=== PATIENT | female | born 1990 | race Hispanic/Latino ===

== ENCOUNTER 2018-04-04 12:52 | Inpatient (IN) | payer OTHER ==
[2018-04-04] MEDS ORDERED: Amoxicillin-Clav 875-125 mg Tab PO STA (13:13)
--- NOTE | 2018-04-04 13:20 | ED PDOC ---
Arrival/HPI - General Chief Complaint: Dental Pain Time Seen by Provider: 04/04/18 13:13 Historian: Patient - History of Present Illness Narrative History of Present Illness (Text): 04/04/18 13:22 27 y/o female, no significant pmh, nkda, s/p lt. lower molar removal procedure performed by her dentist yesterday without conscious sedation c/o lt. sided facial swelling and pain on the throat started yesterday and today. Aching pain , on and off, associated with painful swallowing, no fever or chills, no night sweat, no numbness or tingling, no palpitation, no other medical or psychological complaints. Past Medical History - Provider Review Nursing Documentation Reviewed: Yes - Infectious Disease Hx of Infectious Diseases: None - Psychiatric Hx Substance Use: No - Anesthesia Hx Anesthesia: No Family/Social History - Physician Review Nursing Documentation Reviewed: Yes Family/Social History: Unknown Family HX Smoking Status: Never Smoked Hx Alcohol Use: No Hx Substance Use: No Allergies/Home Meds Allergies/Adverse Reactions: Allergies No Known Allergies Allergy (Verified 04/04/18 12:58) Home Medications: Home Meds Medication Instructions Recorded Confirmed No Known Home Med 04/04/18 04/04/18 Review of Systems - Review of Systems Constitutional: absent: Fatigue, Fevers Eyes: absent: Vision Changes ENT: Sore Throat, Other (Lt. lower dental pain and jaw swelling). absent: Hearing Changes Respiratory: absent: SOB, Cough Cardiovascular: absent: Chest Pain Gastrointestinal: absent: Abdominal Pain, Nausea, Vomiting Skin: absent: Rash, Pruritis Neurological: absent: Headache Psychiatric: absent: Anxiety, Depression, Suicidal Ideation Physical Exam Vital Signs Reviewed: Yes Vital Signs Temp Pulse Resp BP Pulse Ox 04/04/18 20:11 124/62 04/04/18 20:00 98.4 F 04/04/18 19:51 18 121/77 100 04/04/18 19:50 79 18 121/77 100 04/04/18 15:00 79 18 135/71 100 04/04/18 13:06 98.0 F 86 18 138/76 100 Temperature: Afebrile Blood Pressure: Normal Pulse: Regular Respiratory Rate: Normal Appearance: Positive for: Well-Appearing, Non-Toxic, Comfortable Pain Distress: Moderate Mental Status: Positive for: Alert and Oriented X 3 - Systems Exam Head: Present: Atraumatic, Normocephalic, Other (+lt. lower jaw swelling and lt. anterior cervical lymphenapathy) Pupils: Present: PERRL Extroacular Muscles: Present: EOMI Conjunctiva: Present: Normal Ears: Present: NORMAL TM, Normal Canal. No: Erythema Mouth: Present: Moist Mucous Membranes Pharnyx: Present: Soft Palate/Uvular Edema. No: ERYTHEMA, EXUDATE, TONSILS ENLARGED, Uvular Deviation, Muffled/Hoarse Voice, Strider Nose (External): Present: Atraumatic. No: Abrasion, Contusion, Laceration Nose (Internal): Present: Normal Inspection, No Active Bleeding. No: Rhinorrhea , Septal Hematoma, Epistaxis Neck: Present: Normal Range of Motion, Lymphadenopathy (lt. anterior cervical with crepitus sound noted on the left side of the facial/neck regions), Trachea Midline. No: Meningeal Signs, MIDLINE TENDERNESS, Paraspinal Tenderness Respiratory/Chest: Present: Clear to Auscultation, Good Air Exchange. No: Respiratory Distress, Accessory Muscle Use, Wheezes, Decreased Breath Sounds, Rales, Retracting, Rhonchi Cardiovascular: Present: Regular Rate and Rhythm, Normal S1, S2. No: Murmurs Abdomen: No: Tenderness, Distention, Peritoneal Signs Back: Present: Normal Inspection Upper Extremity: Present: Normal Inspection. No: Cyanosis, Edema Lower Extremity: Present: Normal Inspection. No: Edema Neurological: Present: GCS=15, CN II-XII Intact, Speech Normal, Motor Func Grossly Intact, Gait Normal, Memory Normal Skin: Present: Warm, Dry, Normal Color. No: Rashes Psychiatric: Present: Alert, Oriented x 3, Normal Insight, Normal Concentration Medical Decision Making ED Course and Treatment: 04/04/18 13:25 -labs/blood culture -CT facial and neck soft tissue -IVF/toradol/ativan (pt. feels anxious) -Observe and reassess 04/04/18 14:42 -CT reviewed by me and show there is free gas, will need CT chest to r/o source of the free air. CT Chest added. Dr. Marroquin awared of the care and aware of the case/treatment. 04/04/18 15:20 -Urine hcg is negative -Labs show no acute findings -VBG Lactic acid: 0.8 which is within normal limit. -CT facial show Pneumomediastinum with air dissecting into both sides of the neck -CT cervical soft tissue show Pneumomediastinum with large amount of air dissecting into both sides of the neck -CT chest: There is a small amount of mediastinal air surrounding proximal esophagus. There is a large amount of subcutaneous emphysema in the neck and supraclavicular fossa. No evidence of pneumothorax -IV unasyn ordered and will need to be admitted for further examination including scope or possible contrast evaluation po? -Pt.'s pmd doesn't come to [facility], request Dr. Mckeon for admission. -GI Dr. Toledo and ENT Paged, Dr. Mckeon paged. NPO 04/04/18 16:19 -I spoke to Dr. Mckeon, discussed about the labs/case/radiology result, request Dr. Toledo and ENT oncall to be on the consult, ENT and GI Paged, pending call back. 04/04/18 16:29 -I spoke to Dr. Toledo, discussed about the case/labs/radiology result, will consult on the case but suggest ENT and General surgeon consult as well. -vice president media relations/Dr. Quinones paged. 04/04/18 17:07 -I spoke to Dr. Quinones, discussed about the case and CT findings, he suggest ENT for the consult on this case 04/04/18 17:30 -I spoke to Dr. Orozco which he is covering Dr. Cruz, discussed about the case and would see the patient in the hospital with no further intervention indicated at this time, he would reviewed the CT himself as well and see the patient after his office hour, agreed on the IV unasyn and keeping the patient in the [facility]. 04/04/18 17:35 -Dr. Irasema Blount (ICU slot machine key person), discussed about the case/labs/radiology results and spoke to Dr. Marroquin as well, will come to evaluate the patient. 04/04/18 17:54 -I discussed with the medical care evaluation specialist from ICU Dr. Dominic Ely, expressed my concerning about higher level of care to ensure airway observation or any worsening signs or symptoms in the next 24 hours plus call ENT Dr. Orozco to evaluate the patient. 04/04/18 18:12 -Dr. Villalpando came to evaluate the patient, will take the patient to the ICU for close monitoring tonight. 04/04/18 18:23 -Dr. Orozco called back, spoke to Dr. Marroquin and awared that the patient would go to the ICU. Dr. Orozco may proceed with gastrographin swallow evaluation which I would defer to Dr. Orozco for further evaluation and see the patient first. 04/04/18 18:45 -Dr. Toledo came to evaluate the patient on the bedside. -Dr. Mckeon on the bedside now evaluating the patient as well. 04/04/18 19:43 -EKG: NSR @ 78 BPM, no ST elevation or depression, no T wave inversion. -Case seen and examined/discussed with Dr. Marroquin about this case. - Critical Care Critical Care Minutes: 45 minutes Narrative Critical Care (Text): 04/04/18 17:43 Possible esophogus rupture?, GI/ENT/ICU/General sugeon consult. - Lab Interpretations Lab Results: 04/04/18 13:46 04/04/18 13:46 Lab Results 04/04/18 15:35: Blood Type O POSITIVE, Antibody Screen Negative, BBK History Checked No verified bt 04/04/18 15:11: pO2 49, VBG pH 7.35, VBG pCO2 48.0, VBG HCO3 26.5, VBG Total CO2 28.0, VBG O2 Sat (Calc) 89.3 H, VBG Base Excess 0.3, VBG Potassium 4.0, Glucose 80, Lactate 0.8, FiO2 21.0, Sodium 135.0, Chloride 103.0, Venous Blood Potassium 4.0 04/04/18 13:46: WBC 8.2, RBC 4.30, Hgb 12.9, Hct 38.4, MCV 89.3, MCH 30.0, MCHC 33.6, RDW 12.9, Plt Count 191, MPV 12.3 H, Gran % 68.5 H, Lymph % (Auto) 25.7, Colbert % (Auto) 5.0, Eos % (Auto) 0.6 L, Baso % (Auto) 0.2, Gran # 5.63, Lymph # ( Auto) 2.1, Colbert # (Auto) 0.4, Eos # (Auto) 0.1, Baso # (Auto) 0.02 04/04/18 13:46: Sodium 144, Potassium 4.2, Chloride 106, Carbon Dioxide 24, Anion Gap 17, BUN 11, Creatinine 0.8, Est GFR ( Amer) > 60, Est GFR (Non- Af Amer) > 60, Random Glucose 90, Calcium 9.4, Magnesium 2.0, Total Bilirubin 0.5, AST 25, ALT 24, Alkaline Phosphatase 40, Total Protein 7.6, Albumin 4.7, Globulin 2.8, Albumin/Globulin Ratio 1.7, Lipase 111 04/04/18 13:30: PT 11.1, INR 0.97, APTT 27.5 I have reviewed the lab results: Yes - RAD Interpretation Radiology Orders: 04/04/18 13:21 NECK SOFT TISSUE W/CONTRAST [CT] Stat 04/04/18 13:22 MAXILLOFACIAL W/CONTRAST [CT] Stat 04/04/18 14:36 CHEST W/O CONTRAST [CT] Stat CT Facial:. PROCEDURE: CT MAXILLOFACIAL BONES WITH CONTRAST HISTORY: s/p lt. lower molar procedure, creptius sounds COMPARISON: None. TECHNIQUE: Contiguous axial CT images of the maxillofacial bones were obtained following administration of IV contrast. Coronal and sagittal reformats were generated. Intravenous contrast Dose: 150 cc of Omni 350 Radiation dose: Total exam DLP = 692 mGy-cm. This CT exam was performed using one or more of the following dose reduction techniques: Automated exposure control, adjustment of the mA and/or kV according to patient size, and/or use of iterative reconstruction technique. FINDINGS: NASAL BONES: Unremarkable. ORBITS: Unremarkable. PARANASAL SINUSES/ MASTOIDS: Clear. MAXILLA: Unremarkable. MANDIBLE/ TEMPOROMANDIBULAR JOINTS: Unremarkable. SKULL BASE: Unremarkable. TEMPORAL BONES: Middle ears and mastoid grossly unremarkable. OTHER FINDINGS: There is a large amount of air in the soft tissues of the neck consistent with pneumomediastinum. The findings are seen on both sides of the neck. The findings were discussed with the ER staff at 2:40 p.m. IMPRESSION: Pneumomediastinum with air dissecting into both sides of the neck CT Neck soft tissue: THERE IS PNEUMOMEDIASTINUM WITH A LARGE AMOUNT OF AIR DISSECTING IN TO BOTH SIDES OF THE NECK. THE ETIOLOGY IS UNCERTAIN.: Findings were discussed with the ER staff at 2:[address] of the chest is recommended for further evaluation OTHER FINDINGS: None. IMPRESSION: Pneumomediastinum with large amount of air dissecting into both sides of the neck --------- CT Chest: LUNGS: Clear lungs. Visualized airway clear. MEDIASTINUM: Unremarkable thoracic aorta. No aneurysm. Normal sized heart. Main pulmonary artery unremarkable. No vascular congestion. No lymphadenopathy. There is a small amount of mediastinal air surrounding proximal esophagus. There is a large amount of subcutaneous emphysema in the neck and supraclavicular fossa. PLEURA: No pleural fluid. No pneumothorax. BONES: No fracture. No destructive lesion. UPPER ABDOMEN: Grossly unremarkable. OTHER FINDINGS: None. IMPRESSION: There is a small amount of mediastinal air surrounding proximal esophagus. There is a large amount of subcutaneous emphysema in the neck and supraclavicular fossa. 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 Interpreted by ED Physician: Yes Type: 12 lead EKG - Medication Orders Current Medication Orders: Famotidine (Pepcid) 40 mg PO HS HAMZAH Ampicillin Sodium/Sulbactam (Sodium 3 gm/ Sodium Chloride) 100 mls @ 200 mls/ hr IVPB Q6 HAMZAH PRN Reason: Protocol Dextrose/Sodium Chloride (Dextrose 5%/0.9% Ns 1000 Ml) 1,000 mls @ 100 mls/hr IV .Q10H HAMZAH Ketorolac Tromethamine (Toradol) 30 mg IVP Q6H PRN PRN Reason: Pain, moderate (4-7) Last Admin: 04/04/18 21:32 Dose: 30 mg MAR Pain Assessment Document 04/04/18 21:32 SIENNA (Rec: 04/04/18 21:34 SIENNA [id number]) Pain Reassessment Is this a pain reassessment? No Sleep Is patient sleeping during reassessment? No Presence of Pain Presence of Pain Yes Pain Scale Used Pain Scale Used Numeric Location Left, Right or Bilateral Bilateral Upper or Lower Lower Pain Location Body Site Neck Description Description Constant Intensity of Pain at present 10 Acceptable Level of Pain 0 Radiation Location NECK Site Observation EDEMA Pain Behavior Facial Grimacing Aggravating Factors None Alleviating Factors/Management Medication Techniques Alleviating Factors Medication Effects of Pain DISCOMFORT Effectiveness of Techniques JUST GIVING MED. IVP Administration Document 04/04/18 21:32 SIENNA (Rec: 04/04/18 21:34 SIENNA [id number]) Charges for Administration # of IVP Administrations 1 Morphine Sulfate (Morphine) 2 mg IVP Q6H PRN PRN Reason: Pain, severe (8-10) Discontinued Medications Ampicillin Sodium/Sulbactam (Sodium 3 gm/ Sodium Chloride) 100 mls @ 100 mls/ hr IVPB STAT STA PRN Reason: Protocol Stop: 04/04/18 15:42 Last Admin: 04/04/18 16:49 Dose: 100 mls/hr eMAR Start Stop Document 04/04/18 16:49 GMD (Rec: 04/04/18 16:50 GMD [id number]) Intravenous Solution Start Date 04/04/18 Start Time 16:50 End Date 04/04/18 End time 17:50 Total Infusion Time 60 Ketorolac Tromethamine (Toradol) 30 mg IVP STAT STA Stop: 04/04/18 13:26 Last Admin: 04/04/18 13:57 Dose: 30 mg LUIS Pain Assessment Document 04/04/18 13:57 GMD (Rec: 04/04/18 13:57 GMD [id number]) Pain Reassessment Is this a pain reassessment? No IVP Administration Document 04/04/18 13:57 GMD (Rec: 04/04/18 13:57 GMD [id number]) Charges for Administration # of IVP Administrations 1 Lorazepam (Ativan) 1 mg IVP ONCE ONE PRN Reason: Protocol Stop: 04/04/18 13:42 Last Admin: 04/04/18 13:57 Dose: 1 mg IVP Administration Document 04/04/18 13:57 GMD (Rec: 04/04/18 13:57 GMD [id number]) Charges for Administration # of IVP Administrations 1 Morphine Sulfate (Morphine) 2 mg IVP STAT STA Stop: 04/04/18 17:55 Last Admin: 04/04/18 19:23 Dose: Morphine Sulfate (Morphine) 2 mg IVP Q6H PRN PRN Reason: Pain, severe (8-10) Last Admin: 04/04/18 19:21 Dose: 2 mg [facility] Pain Assessment Document 04/04/18 19:21 GMD (Rec: 04/04/18 19:21 D [id number]) Pain Reassessment Is this a pain reassessment? No Presence of Pain Presence of Pain Yes IVP Administration Document 04/04/18 19:21 GMD (Rec: 04/04/18 19:21 D [id number]) Charges for Administration # of IVP Administrations 1 Re-Assess: [facility] Pain Assessment Document 04/04/18 20:21 JJIMENA (Rec: 04/04/18 21:25 JZI [id number]) Pain Reassessment Is this a pain reassessment? Yes Sleep Is patient sleeping during reassessment? No Presence of Pain Presence of Pain Yes Pain Scale Used Pain Scale Used Numeric Description Intensity of Pain at present 2 Acceptable Level of Pain 0 Alleviating Factors/Management Medication Techniques Alleviating Factors Medication Effects of Pain DISCOMFORT Effectiveness of Techniques EFFECTIVE - PA / [employer] / Resident Statement MD/DO has reviewed & agrees with the documentation as recorded. MD/DO has examined the patient and agrees with the treatment plan. Disposition/Present on Arrival - Present on Arrival Any Indicators Present on Arrival: No History of DVT/PE: No History of Uncontrolled Diabetes: No Urinary Catheter: No History of Decub. Ulcer: No History Surgical Site Infection Following: None - Disposition Have Diagnosis and Disposition been Completed?: Yes Diagnosis: Pneumomediastinum, Throat pain Disposition: HOSPITALIZED Disposition Time: 15:14 Patient Plan: Admission, ICU Patient Problems: Current Active Problems Problem Status Onset Pneumomediastinum Acute Throat pain Acute Condition: STABLE
[2018-04-04 13:57] LABS: BASO # 0.02 K/mm3 (0.0-2.0); BASO % 0.2 % (0.0-3.0); EOS # 0.1 (0.0-0.7); EOS % 0.6 % (1.5-5.0); GRAN # 5.63 (1.4-6.5); GRAN % 68.5 % (50.0-68.0); HEMOGLOBIN 12.9 g/dL (12.0-16.0); LYMPH # 2.1 (1.2-3.4); LYMPH % 25.7 % (22.0-35.0); MEAN CELL VOLUME 89.3 fl (80.0-105.0); MEAN CORPUSCULAR HGB CONC 33.6 g/dl (31.0-37.0); MEAN PLATELET VOLUME 12.3 fl (7.0-11.0); MONO # 0.4 (0.1-0.6); RBC 4.3 10^6/uL (3.5-6.1); RED CELL DISTRIBUTION WIDTH 12.9 % (11.5-14.5); WHITE BLOOD COUNT 8.2 10^3/ul (4.5-11.0)
[2018-04-04 14:02] LABS: ALB/GLOB RATIO 1.7 (1.1-1.8); ALBUMIN 4.7 g/dL (3.0-4.8); ALT/SGPT 24 U/L (7-56); AST/SGOT 25 U/L (14-36); BLOOD UREA NITROGEN 11 mg/dL (7-21); CALCIUM 9.4 mg/dL (8.4-10.5); GFR AFRICAN-AMERICAN > 60; GFR NON-AFRICAN AMERICAN > 60; LIPASE 111 U/L (23-300)
--- NOTE | 2018-04-04 14:43 | CT ---
PROCEDURE: CT MAXILLOFACIAL BONES WITH CONTRAST HISTORY: s/p lt. lower molar procedure, creptius sounds COMPARISON: None. TECHNIQUE: Contiguous axial CT images of the maxillofacial bones were obtained following administration of IV contrast. Coronal and sagittal reformats were generated. Intravenous contrast Dose: 150 cc of Omni 350 Radiation dose: Total exam DLP = 692 mGy-cm. This CT exam was performed using one or more of the following dose reduction techniques: Automated exposure control, adjustment of the mA and/or kV according to patient size, and/or use of iterative reconstruction technique. FINDINGS: NASAL BONES: Unremarkable. ORBITS: Unremarkable. PARANASAL SINUSES/ MASTOIDS: Clear. MAXILLA: Unremarkable. MANDIBLE/ TEMPOROMANDIBULAR JOINTS: Unremarkable. SKULL BASE: Unremarkable. TEMPORAL BONES: Middle ears and mastoid grossly unremarkable. OTHER FINDINGS: There is a large amount of air in the soft tissues of the neck consistent with pneumomediastinum. The findings are seen on both sides of the neck. The findings were discussed with the ER staff at 2:40 p.m. IMPRESSION: Pneumomediastinum with air dissecting into both sides of the neck
--- NOTE | 2018-04-04 14:46 | CT ---
PROCEDURE: CT NECK WITH CONTRAST HISTORY: s/p lt. lower molar dental procedure, creptius anthony COMPARISON: None TECHNIQUE: CT of the neck with intravenous contrast. Coronal and sagittal reformats generated. Intravenous contrast dose: 150 cc of Omni 350 Radiation dose: DLP 189 mGy-cm This CT exam was performed using one or more of the following dose reduction techniques: Automated exposure control, adjustment of the mA and/or kV according to patient size, and/or use of iterative reconstruction technique. FINDINGS: THERE IS PNEUMOMEDIASTINUM WITH A LARGE AMOUNT OF AIR DISSECTING IN TO BOTH SIDES OF THE NECK. THE ETIOLOGY IS UNCERTAIN.: Findings were discussed with the ER staff at 2:[address] of the chest is recommended for further evaluation OTHER FINDINGS: None. IMPRESSION: Pneumomediastinum with large amount of air dissecting into both sides of the neck
--- NOTE | 2018-04-04 15:03 | CT ---
PROCEDURE: CT Chest without contrast HISTORY: air in mediastinum? COMPARISON: CT of the neck obtained same day TECHNIQUE: Contiguous axial images were obtained through the chest without intravenous contrast enhancement. Sagittal and coronal reconstructions were performed. Radiation dose (DLP): 146 mGy-cm. This CT exam was performed using one or more of the following dose reduction techniques: Automated exposure control, adjustment of the mA and/or kV according to patient size, and/or use of iterative reconstruction technique. FINDINGS: LUNGS: Clear lungs. Visualized airway clear. MEDIASTINUM: Unremarkable thoracic aorta. No aneurysm. Normal sized heart. Main pulmonary artery unremarkable. No vascular congestion. No lymphadenopathy. There is a small amount of mediastinal air surrounding proximal esophagus. There is a large amount of subcutaneous emphysema in the neck and supraclavicular fossa. PLEURA: No pleural fluid. No pneumothorax. BONES: No fracture. No destructive lesion. UPPER ABDOMEN: Grossly unremarkable. OTHER FINDINGS: None. IMPRESSION: There is a small amount of mediastinal air surrounding proximal esophagus. There is a large amount of subcutaneous emphysema in the neck and supraclavicular fossa. No evidence of pneumothorax
[2018-04-04 15:18] LABS: VENOUS BLOOD GAS BASE EXCESS 0.3 mmol/L (0.0-2.0); VENOUS BLOOD GAS PO2 49 mm/Hg (30-55); VENOUS BLOOD PH 7.35 (7.32-7.43)
[2018-04-04 16:01] LABS: PROTHROMBIN TIME 11.1 SECONDS (9.4-12.5)
[2018-04-04 16:02] LABS: INR 0.97 (0.93-1.08); PARTIAL THROMBOPLASTIN TIME 27.5 Seconds (25.1-36.5)
[2018-04-04] MEDS ORDERED: Morphine 4 mg/ml ISec IVP STA (17:54)
--- NOTE | 2018-04-04 18:24 | CP.PCM.CON ---
<Des Ely - Last Filed: 04/04/18 18:14> History of Present Illness - History of Present Illness History of Present Illness: ICU Consult Note Pt is a 27 yo F with no significant PMH [place] [facility] due to left sided facial swelling and pain on her throat. Patient states that she had a crown removed from her left lower first molar yesterday afternoon without any sedation. Patient states that procedure went well without any complications. However, patient began to notice that the area below her jaw began to hurt, swell, and extend downward into her neck bilaterally. Patient states that she became very anxious over the pain and swelling and came [place] [facility] [place] Patient states she has pain with swallowing. Pt denies any valsalva maneuver during the procedure or afterwards. Pt denies CP, SOB, n/v/d, abdominal pain, fever, chills, SCHMID, or dizziness. In the ED, imaging was obtained that showed pneumomediastinum. ICU was consulted for airway monitoring. PMH: denied Surg: Rhinoplasty All: NKDA SH: Admits to social EtOH use, denied tobacco and illicit drug use FHx: non-contributory Medications: oral control, spironolactone Review of Systems - Review of Systems Review of Systems: 12 point ROS reviewed and is negative other than what is stated in HPI. Past Patient History - Infectious Disease Hx of Infectious Diseases: None - Past Social History Smoking Status: Never Smoked - PSYCHIATRIC Hx Substance Use: No - SURGICAL HISTORY Hx Surgeries: No - ANESTHESIA Hx Anesthesia: No Meds Allergies/Adverse Reactions: Allergies Allergy/AdvReac Type Severity Reaction Status Date / Time No Known Allergies Allergy Verified 04/04/18 12:58 Physical Exam - Constitutional Appears: No Acute Distress - Head Exam Head Exam: NORMAL INSPECTION - Eye Exam Eye Exam: Normal appearance - ENT Exam ENT Exam: Mucous Membranes Moist Additional comments: Swelling left mandible - Neck Exam Neck exam: Positive for: Full Rom, Tenderness. Negative for: Lymphadenopathy, Thyromegaly Additional comments: Palpable crepitus lateral to trachea extends to clavicle, bilaterally - Respiratory Exam Respiratory Exam: Clear to Auscultation Bilateral. absent: Rales, Rhonchi, Wheezes - Cardiovascular Exam Cardiovascular Exam: RRR, +S1. absent: Diastolic murmur, Gallop, Rubs, Systolic Murmur - GI/Abdominal Exam GI & Abdominal Exam: Soft. absent: Distended, Guarding, Rebound, Tenderness - Extremities Exam Extremities exam: Positive for: normal inspection - Back Exam Back exam: NORMAL INSPECTION - Neurological Exam Neurological exam: Alert, CN II-XII Intact, Oriented x3 - Psychiatric Exam Psychiatric exam: Normal Affect, Normal Mood - Skin Skin Exam: Dry, Intact, Normal Color, Warm Results - Vital Signs Recent Vital Signs: Last Vital Signs Temp 98.0 F 04/04/18 13:06 Pulse 79 04/04/18 15:00 Resp 18 04/04/18 15:00 BP 135/71 04/04/18 15:00 Pulse Ox 100 04/04/18 15:00 - Labs Result Diagrams: 04/04/18 13:46 04/04/18 13:46 Labs: Laboratory Results - last 24 hr 04/04/18 04/04/18 04/04/18 13:30 13:46 13:46 WBC 8.2 RBC 4.30 Hgb 12.9 Hct 38.4 MCV 89.3 MCH 30.0 MCHC 33.6 RDW 12.9 Plt Count 191 MPV 12.3 H Gran % 68.5 H Lymph % (Auto) 25.7 [place] % (Auto) 5.0 Eos % (Auto) 0.6 L Baso % (Auto) 0.2 Gran # 5.63 Lymph # (Auto) 2.1 [place] # (Auto) 0.4 Eos # (Auto) 0.1 Baso # (Auto) 0.02 PT 11.1 INR 0.97 APTT 27.5 pO2 VBG pH VBG pCO2 VBG HCO3 VBG Total CO2 VBG O2 Sat (Calc) VBG Base Excess VBG Potassium Glucose Lactate FiO2 Sodium 144 Potassium 4.2 Chloride 106 Carbon Dioxide 24 Anion Gap 17 BUN 11 Creatinine 0.8 Est GFR ( Amer) > 60 Est GFR (Non-Af Amer) > 60 Random Glucose 90 Calcium 9.4 Magnesium 2.0 Total Bilirubin 0.5 AST 25 ALT 24 Alkaline Phosphatase 40 Total Protein 7.6 Albumin 4.7 Globulin 2.8 Albumin/Globulin Ratio 1.7 Lipase 111 Venous Blood Potassium Blood Type Antibody Screen BBK History Checked 04/04/18 04/04/18 15:11 15:35 WBC RBC Hgb Hct MCV MCH MCHC RDW Plt Count MPV Gran % Lymph % (Auto) [place] % (Auto) Eos % (Auto) Baso % (Auto) Gran # Lymph # (Auto) [place] # (Auto) Eos # (Auto) Baso # (Auto) PT INR APTT pO2 49 VBG pH 7.35 VBG pCO2 48.0 VBG HCO3 26.5 VBG Total CO2 28.0 VBG O2 Sat (Calc) 89.3 H VBG Base Excess 0.3 VBG Potassium 4.0 Glucose 80 Lactate 0.8 FiO2 21.0 Sodium 135.0 Potassium Chloride 103.0 Carbon Dioxide Anion Gap BUN Creatinine Est GFR ( Amer) Est GFR (Non-Af Amer) Random Glucose Calcium Magnesium Total Bilirubin AST ALT Alkaline Phosphatase Total Protein Albumin Globulin Albumin/Globulin Ratio Lipase Venous Blood Potassium 4.0 Blood Type O POSITIVE Antibody Screen Negative BBK History Checked No verified bt Assessment & Plan - Assessment and Plan (Free Text) Assessment: 27 yo F with no significant PMH admitted to the ICU for airway monitoring 2/2 spontaneous pneumomediastinum. Plan: Neuro: - AAOx3 - Maintain normothermia CV: - Hemodynamically stable - Maintain MAP > 65 Pulm: - Maintain O2 sat > 90% - Monitor airway for compromise 2/2 pneumomediastinum - VBG reviewed MSK: - Neck CT and Maxillofacial CT showed pneumomediastinum with large amount of air dissecting bilaterally - Chest CT showed small amount of mediastinal air surrounding esophagus. Subcutaneous emphysema in neck and supraclavicular fossa. No pneumothorax - Toradol and morphine prn for pain - ENT consulted GI: - NPO - Surgery consulted - GI consulted Renal: - Monitor electrolytes, replete as needed - Monitor I's and O's - Maintain euvolemia Heme: - H/H stable - Cont to monitor - DVT ppx not needed at this time as patient is ambulatory Endo: - Maintain euglycemia ID: - Unasyn x1 in ED Pt seen and discussed in detail with Dr. Vergara. Dominic Ely, PGY1 <Patel Vergara - Last Filed: 04/04/18 18:51> Meds - Medications Medications: Current Medications Ketorolac Tromethamine (Toradol) 30 mg IVP Q6H PRN PRN Reason: Pain, moderate (4-7) Morphine Sulfate (Morphine) 2 mg IVP Q6H PRN PRN Reason: Pain, severe (8-10) Results - Vital Signs Recent Vital Signs: Last Vital Signs Temp 98.0 F 04/04/18 13:06 Pulse 79 04/04/18 15:00 Resp 18 04/04/18 15:00 BP 135/71 04/04/18 15:00 Pulse Ox 100 04/04/18 15:00 - Labs Result Diagrams: 04/04/18 13:46 04/04/18 13:46 Attending/Attestation - Attestation I have personally seen and examined this patient.: Yes I have fully participated in the care of the patient.: Yes I have reviewed all pertinent clinical information: Yes Notes (Text): 04/04/18 18:49 The patient was seen and examined at the bedside. Patient care was discussed with resident Medical records, lab studies were reviewed and management issues were discussed and formulated. Agree with above treatment plans as outlined in 's note with addition of the followinyo female pt presented with spontaneous pneumomediastinum. Pt denies any cough , vomiting, bearing down maneuvers. Pt had a recent dental procedure. We are awaiting ENT and GI team eval Will continue hemodynamic and airway monitoring in ICU
[2018-04-04] MEDS ORDERED: Morphine 2 mg/ml ISec IVP PRN (18:37)
[2018-04-05 04:13] VITALS: BMI 17.6
[2018-04-05 05:57] LABS: MEAN CELL VOLUME 89.6 fl (80.0-105.0); MEAN CORPUSCULAR HGB CONC 33.5 g/dl (31.0-37.0); MEAN PLATELET VOLUME 12.3 fl (7.0-11.0); RBC 4.33 10^6/uL (3.5-6.1); RED CELL DISTRIBUTION WIDTH 12.8 % (11.5-14.5); WHITE BLOOD COUNT 7.7 10^3/ul (4.5-11.0)
[2018-04-05 05:58] LABS: IRON 167 ug/dL (45-180)
[2018-04-05 06:07] LABS: % IRON SATURATION 42 % (20-55); TOTAL IRON BINDING CAPACITY 401 ug/dL (265-497)
[2018-04-05 06:10] LABS: LDL CHOLESTEROL 69 mg/dL (0-129)
[2018-04-05 06:14] LABS: BLOOD UREA NITROGEN 13 mg/dL (7-21); CALCIUM 9.3 mg/dL (8.4-10.5); GFR AFRICAN-AMERICAN > 60; GFR NON-AFRICAN AMERICAN > 60; HDL CHOLESTEROL 64 mg/dL (29-60)
[2018-04-05] MEDS ORDERED: Dextrose 5%/0.9% NS 1,000 ML IV SCH (08:45)
[2018-04-05] MEDS: Morphine 4 mg/ml ISec IVP PRN ×2 (09:35→17:28)
--- NOTE | 2018-04-05 10:27 | PN ---
DATE: 04/05/2018 SUBJECTIVE: The patient is seen and examined at bedside. She is comfortable. She still complains of some neck pain, especially on palpation and supraclavicular area. The patient had uneventful night. The patient did not report worsening of the pain. OBJECTIVE: VITAL SIGNS: Temperature 98.4, blood pressure 108/58, respiratory rate 14, oxygen saturation 98% on room air. ENT: Head and neck slightly tender in the supraclavicular and neck area bilaterally; however, no subcutaneous emphysema palpated. HEART: Regular rate and rhythm. S1, S2 normal. LUNGS: Clear to auscultation bilaterally. ABDOMEN: Soft, nontender, nondistended. MUSCULOSKELETAL: No C/C/E. NEUROLOGICAL: The patient moves all extremities spontaneously. SKIN: Moist. PSYCHIATRIC: The patient is alert, awake and oriented x3. LABORATORY DATA: WBC 7.7, hemoglobin 13, platelet count 189. Sodium 143, potassium 4.1, chloride 108, carbon dioxide 19, BUN 13, creatinine 0.8, glucose 60. INR 0.97. PT 27.5. VBG: pH 7.35, lactate 0.8. MEDICATIONS: Pepcid, Toradol p.r.n., morphine p.r.n., Unasyn, D5 normal saline at 100 mL/hour. ASSESSMENT: This is a 27-year-old lady with pneumomediastinum after dental procedure. She is afebrile, does not have leukocytosis, very comfortable. She still has some tenderness on neck palpation. I will continue with antibiotics at present time. The patient was evaluated by Dr. Toledo (GI), however, decided against upper endoscopy, as fairly comfortable with dental procedure as an etiology. Thoracic surgery evaluation was requested (I spoke with Dr. Washington), who requested esophagogram. We will continue to target euvolemia, euglycemia, normothermia and oxygen saturation more than 90%. We will continue with DVT and GI prophylaxis. ENT eval was requested by PMD and is still pending ccm time 40 min Nicolas Hernandez MD [facility] # [id number] RAMESH
--- NOTE | 2018-04-05 10:50 | CP.CCUPN ---
<Des Ely - Last Filed: 04/05/18 10:45> CCU Subjective - Physician Review Subjective (Free Text): ICU Progress Note Pt seen and examined at bedside. No acute overnight events. Pt states that she still has been in her neck, but is controlled with medications. Pt denied CP, SOB, n/v/d, abdominal pain, fever, chills, SCHMID, or dizziness. CCU Objective - Vital Signs / Intake & Output Intake and Output (Last 8hrs): Intake & Output 04/04/18 04/05/18 04/05/18 22:59 06:59 14:59 Intake Total 0 Output Total 0 Balance 0 Weight 50.984 kg Intake: IV 0 Left Antecubital 0 Oral 0 Output: Urine 0 Urine, Voided 0 Other: Voiding Method Toilet # Bowel Movements 0 - Physical Exam Head: Positive for: Atraumatic, Normocephalic, Other (+lt. lower jaw swelling and lt. anterior cervical lymphenapathy) Pupils: Positive for: PERRL Extroacular Muscles: Positive for: EOMI Conjunctiva: Positive for: Normal Ears: Positive for: NORMAL TM, Normal Canal. Negative for: Erythema Mouth: Positive for: Moist Mucous Membranes Pharnyx: Positive for: Soft Palate/Uvular Edema. Negative for: ERYTHEMA, EXUDATE, TONSILS ENLARGED, Uvular Deviation, Muffled/Hoarse Voice, Strider Nose (External): Positive for: Atraumatic. Negative for: Abrasion, Contusion, Laceration Nose (Internal): Positive for: Normal Inspection, No Active Bleeding. Negative for: Rhinorrhea, Septal Hematoma, Epistaxis Neck: Positive for: Normal Range of Motion, Lymphadenopathy (lt. anterior cervical with crepitus noted on the left side of the facial/neck regions), Trachea Midline. Negative for: Meningeal Signs, MIDLINE TENDERNESS, Paraspinal Tenderness Respiratory/Chest: Positive for: Clear to Auscultation, Good Air Exchange. Negative for: Respiratory Distress, Accessory Muscle Use, Wheezes, Decreased Breath Sounds, Rales, Retracting, Rhonchi Cardiovascular: Positive for: Regular Rate and Rhythm, Normal S1, S2. Negative for: Murmurs Abdomen: Negative for: Tenderness, Distention, Peritoneal Signs Back: Positive for: Normal Inspection Upper Extremity: Positive for: Normal Inspection. Negative for: Cyanosis, Edema Lower Extremity: Positive for: Normal Inspection. Negative for: Edema Neurological: Positive for: GCS=15, CN II-XII Intact, Speech Normal, Motor Func Grossly Intact, Gait Normal, Memory Normal Skin: Positive for: Warm, Dry, Normal Color. Negative for: Rashes Psychiatric: Positive for: Alert, Oriented x 3, Normal Insight, Normal Concentration - Medications Active Medications: Active Medications Generic Name Dose Route Start Last Admin Trade Name Freq PRN Reason Stop Dose Admin Famotidine 40 mg 04/05/18 22:00 Pepcid PO HS HAMZAH Ampicillin Sodium/Sulbactam 100 mls @ 200 mls/hr 04/05/18 12:00 Sodium 3 gm/ Sodium Chloride IVPB Q6 HAMZAH Protocol Dextrose/Sodium Chloride 1,000 mls @ 100 mls/hr 04/05/18 08:45 04/05/18 09:37 Dextrose 5%/0.9% Ns 1000 Ml IV 100 mls/hr .Q10H HAMZAH Administration Ketorolac Tromethamine 30 mg 04/04/18 18:37 04/04/18 21:32 Toradol IVP 30 mg Q6H PRN Administration Pain, moderate (4-7) Morphine Sulfate 2 mg 04/05/18 09:16 04/05/18 09:35 Morphine IVP 2 mg Q6H PRN Administration Pain, severe (8-10) - Patient Studies Lab Studies: Lab Studies 04/05/18 04/05/18 04/05/18 Range/Units 05:00 05:00 05:00 WBC 7.7 (4.5-11.0) 10^3/ul RBC 4.33 (3.5-6.1) 10^6/uL Hgb 13.0 (12.0-16.0) g/dL Hct 38.8 (36.0-48.0) % MCV 89.6 (80.0-105.0) fl MCH 30.0 (25.0-35.0) pg MCHC 33.5 (31.0-37.0) g/dl RDW 12.8 (11.5-14.5) % Plt Count 189 (120.0-450.0) 10^3/uL MPV 12.3 H (7.0-11.0) fl Sodium 143 (132-148) mmol/L Potassium 4.1 (3.6-5.0) mmol/L Chloride 108 H (98-107) mmol/L Carbon Dioxide 19 L (21-33) mmol/L Anion Gap 19 (10-20) BUN 13 (7-21) mg/dL Creatinine 0.8 (0.7-1.2) mg/dl Est GFR ( Amer) > 60 Est GFR (Non-Af Amer) > 60 Random Glucose 60 L (70-110) mg/dL Calcium 9.3 (8.4-10.5) mg/dL Iron 167 (45-180) ug/dL TIBC 401 (265-497) ug/dL % Saturation 42 (20-55) % Triglycerides 91 (35-160) mg/dL Cholesterol 152 (130-200) mg/dL LDL Cholesterol Direct 69 (0-129) mg/dL HDL Cholesterol 64 H (29-60) mg/dL Laboratory Results - last 24 hr 04/05/18 04/05/18 04/05/18 05:00 05:00 05:00 WBC 7.7 RBC 4.33 Hgb 13.0 Hct 38.8 MCV 89.6 MCH 30.0 MCHC 33.5 RDW 12.8 Plt Count 189 MPV 12.3 H Sodium 143 Potassium 4.1 Chloride 108 H Carbon Dioxide 19 L Anion Gap 19 BUN 13 Creatinine 0.8 Est GFR ( Amer) > 60 Est GFR (Non-Af Amer) > 60 Random Glucose 60 L Calcium 9.3 Iron 167 TIBC 401 % Saturation 42 Triglycerides 91 Cholesterol 152 LDL Cholesterol Direct 69 HDL Cholesterol 64 H EKG/Cardiology Studies: Cardiology / EKG Studies 04/04/18 19:22 ELECTROCARDIOGRAM Stat Comment: Reason For Exam: THROAT DISCOMFORT Assessment/Plan - Assessment and Plan (Free Text) Assessment: 27 yo F with no significant PMH admitted to the ICU for airway monitoring 2/2 spontaneous pneumomediastinum. Plan: Neuro: - AAOx3 - Maintain normothermia CV: - Hemodynamically stable - Maintain MAP > 65 - CT Surgery consulted - recommends esophagram with gastrograffin Pulm: - Maintain O2 sat > 90% - Monitor airway for compromise 2/2 pneumomediastinum - VBG reviewed MSK: - Neck CT and Maxillofacial CT showed pneumomediastinum with large amount of air dissecting bilaterally - Chest CT showed small amount of mediastinal air surrounding esophagus. Subcutaneous emphysema in neck and supraclavicular fossa. No pneumothorax - Toradol and morphine prn for pain - ENT consulted - recommends esophagram with gastrograffin GI: - NPO - GI consulted - recommends esophogram with gastrograffin Renal: - Monitor electrolytes, replete as needed - Monitor I's and O's - Maintain euvolemia - D5W started Heme: - H/H stable - Cont to monitor - DVT ppx not needed at this time as patient is ambulatory Endo: - Maintain euglycemia - D5W started ID: - Unasyn x1 in ED Pt seen and discussed in detail with Dr. Brown. Dominic Ely, PGY1 <Nicolas Hernandez - Last Filed: 04/05/18 14:22> CCU Objective - Vital Signs / Intake & Output Vital Signs (Last 4 hours): Vital Signs Pulse Resp BP Pulse Ox 04/05/18 14:04 67 15 04/05/18 14:03 69 18 04/05/18 14:02 68 04/05/18 14:01 71 13 04/05/18 14:00 70 13 106/55 L 77 L 04/05/18 13:50 65 18 99 04/05/18 13:40 76 15 04/05/18 13:39 82 13 04/05/18 13:30 63 13 98 04/05/18 13:20 71 15 98 04/05/18 13:10 73 16 98 04/05/18 13:00 68 12 113/57 L 99 04/05/18 12:50 75 14 98 04/05/18 12:40 64 15 98 04/05/18 12:30 67 16 98 04/05/18 12:20 70 13 98 04/05/18 12:10 71 18 98 04/05/18 12:00 70 15 108/54 L 99 04/05/18 11:50 87 100 04/05/18 11:40 73 100 04/05/18 11:30 74 17 99 04/05/18 11:20 77 13 100 04/05/18 11:10 69 100 04/05/18 11:00 66 15 98/52 L 99 04/05/18 10:50 70 16 98 04/05/18 10:40 74 20 100 04/05/18 10:30 72 18 100 Intake and Output (Last 8hrs): Intake & Output 04/04/18 04/05/18 04/05/18 22:59 06:59 14:59 Intake Total 0 Output Total 0 Balance 0 Weight 112 lb 6.4 oz Intake: IV 0 Left Antecubital 0 Oral 0 Output: Urine 0 Urine, Voided 0 Other: Voiding Method Toilet # Bowel Movements 0 - Medications Active Medications: Active Medications Generic Name Dose Route Start Last Admin Trade Name Freq PRN Reason Stop Dose Admin Famotidine 40 mg 04/05/18 22:00 Pepcid PO HS HAMZAH Ampicillin Sodium/Sulbactam 100 mls @ 200 mls/hr 04/05/18 12:00 04/05/18 12: 08 Sodium 3 gm/ Sodium Chloride IVPB 200 mls/hr Q6 HAMZAH Administration Protocol Dextrose/Sodium Chloride 1,000 mls @ 100 mls/hr 04/05/18 08:45 04/05/18 09:37 Dextrose 5%/0.9% Ns 1000 Ml IV 100 mls/hr .Q10H HAMZAH Administration Ketorolac Tromethamine 30 mg 04/04/18 18:37 04/04/18 21:32 Toradol IVP 30 mg Q6H PRN Administration Pain, moderate (4-7) Morphine Sulfate 2 mg 04/05/18 09:16 04/05/18 09:35 Morphine IVP 2 mg Q6H PRN Administration Pain, severe (8-10) - Patient Studies Lab Studies: Lab Studies 04/05/18 04/05/18 04/05/18 Range/Units 05:00 05:00 05:00 WBC 7.7 (4.5-11.0) 10^3/ul RBC 4.33 (3.5-6.1) 10^6/uL Hgb 13.0 (12.0-16.0) g/dL Hct 38.8 (36.0-48.0) % MCV 89.6 (80.0-105.0) fl MCH 30.0 (25.0-35.0) pg MCHC 33.5 (31.0-37.0) g/dl RDW 12.8 (11.5-14.5) % Plt Count 189 (120.0-450.0) 10^3/uL MPV 12.3 H (7.0-11.0) fl Sodium 143 (132-148) mmol/L Potassium 4.1 (3.6-5.0) mmol/L Chloride 108 H (98-107) mmol/L Carbon Dioxide 19 L (21-33) mmol/L Anion Gap 19 (10-20) BUN 13 (7-21) mg/dL Creatinine 0.8 (0.7-1.2) mg/dl Est GFR ( Amer) > 60 Est GFR (Non-Af Amer) > 60 Random Glucose 60 L (70-110) mg/dL Calcium 9.3 (8.4-10.5) mg/dL Iron 167 (45-180) ug/dL TIBC 401 (265-497) ug/dL % Saturation 42 (20-55) % Triglycerides 91 (35-160) mg/dL Cholesterol 152 (130-200) mg/dL LDL Cholesterol Direct 69 (0-129) mg/dL HDL Cholesterol 64 H (29-60) mg/dL Vitamin B12 299 (239-931) pg/mL Folate > 20.0 ng/mL Laboratory Results - last 24 hr 04/05/18 04/05/18 04/05/18 05:00 05:00 05:00 WBC 7.7 RBC 4.33 Hgb 13.0 Hct 38.8 MCV 89.6 MCH 30.0 MCHC 33.5 RDW 12.8 Plt Count 189 MPV 12.3 H Sodium 143 Potassium 4.1 Chloride 108 H Carbon Dioxide 19 L Anion Gap 19 BUN 13 Creatinine 0.8 Est GFR ( Amer) > 60 Est GFR (Non-Af Amer) > 60 Random Glucose 60 L Calcium 9.3 Iron 167 TIBC 401 % Saturation 42 Triglycerides 91 Cholesterol 152 LDL Cholesterol Direct 69 HDL Cholesterol 64 H Vitamin B12 299 Folate > 20.0 EKG/Cardiology Studies: Cardiology / EKG Studies 04/04/18 19:22 ELECTROCARDIOGRAM Stat Comment: Reason For Exam: THROAT DISCOMFORT Attending/Attestation - Attestation I have personally seen and examined this patient.: Yes I have fully participated in the care of the patient.: Yes I have reviewed all pertinent clinical information: Yes Notes (Text): 04/05/18 14:[address] Hernandez note
[2018-04-05 12:36] LABS: FOLATE > 20.0 ng/mL
--- NOTE | 2018-04-05 13:31 | CP.PCM.CON ---
History of Present Illness - History of Present Illness History of Present Illness: Cardiothoracic Surgery Consult note. Dr. Washington 27yo F with no significant PMHx here for evaluation of left-sided jaw pain and swelling. Patient reports dental procedure done 3 days ago. She had left lower molar cap removed and refilled. Denies any intubation or sedation. Does report receiving local anesthetic for the procedure. She denies any coughing during or after the procedure. Denies any nausea or vomiting. No wretching. Denies any trauma. No fevers, no chills. No recent illnesses. States that soon after the procedure, she felt some pain at the left lower jaw and swelling which slowing extended down to her neck. She does report that the felt some crepitus in the neck down to bilateral shoulders. She became worried and came into the ER for evaluation. In ED, she obtained CT scan which showed pneumomediastinum. PMHx: Denies PSHx: Rhinoplasty. Recent dental procedure Family Hx: non-contributory Social Hx: occasional ETOH use, Denies Tobacco, denies illicit drugs NKDA Review of Systems - Review of Systems All systems: reviewed and no additional remarkable complaints except - Constitutional Constitutional: absent: Chills, Fever - EENT Eyes: absent: Blurred Vision, Change in Vision Ears: absent: Decreased Hearing, Ear Discharge Nose/Mouth/Throat: Mouth Pain, Throat Swelling, Neck Pain. absent: Epistaxis, Nasal Congestion - Respiratory Respiratory: absent: Dyspnea, Hemoptysis - Gastrointestinal Gastrointestinal: absent: Abdominal Pain, Hematemesis, Hematochezia, Melena, Nausea, Vomiting - Genitourinary Genitourinary: absent: Dysuria Past Patient History - Infectious Disease Hx of Infectious Diseases: None - Past Medical History & Family History Past Medical History?: Yes Past Family History: Reviewed and not pertinent - Past Social History Smoking Status: Never Smoked Alcohol: Social Drugs: Denies - CARDIAC Hx Cardiac Disorders: No - PULMONARY Hx Respiratory Disorders: No - NEUROLOGICAL Hx Neurological Disorder: No - HEENT Other/Comment: WEARS EYEGLASSES - RENAL Hx Chronic Kidney Disease: No - ENDOCRINE/METABOLIC Hx Endocrine Disorders: No - HEMATOLOGICAL/ONCOLOGICAL Hx Blood Disorders: No - INTEGUMENTARY Hx Dermatological Problems: No - MUSCULOSKELETAL/RHEUMATOLOGICAL Hx Musculoskeletal Disorders: No Hx Falls: No - GASTROINTESTINAL Hx Gastrointestinal Disorders: No - GENITOURINARY/GYNECOLOGICAL Hx Genitourinary Disorders: No - PSYCHIATRIC Hx Substance Use: No - SURGICAL HISTORY Hx Surgeries: No - ANESTHESIA Hx Anesthesia: No Meds Allergies/Adverse Reactions: Allergies Allergy/AdvReac Type Severity Reaction Status Date / Time No Known Allergies Allergy Verified 04/04/18 12:58 - Medications Medications: Current Medications Famotidine (Pepcid) 40 mg PO HS HAMZAH Ampicillin Sodium/Sulbactam (Sodium 3 gm/ Sodium Chloride) 100 mls @ 200 mls/ hr IVPB Q6 HAMZAH PRN Reason: Protocol Last Admin: 04/05/18 12:08 Dose: 200 mls/hr Dextrose/Sodium Chloride (Dextrose 5%/0.9% Ns 1000 Ml) 1,000 mls @ 100 mls/hr IV .Q10H HAMZAH Last Admin: 04/05/18 09:37 Dose: 100 mls/hr Ketorolac Tromethamine (Toradol) 30 mg IVP Q6H PRN PRN Reason: Pain, moderate (4-7) Last Admin: 04/04/18 21:32 Dose: 30 mg Morphine Sulfate (Morphine) 2 mg IVP Q6H PRN PRN Reason: Pain, severe (8-10) Last Admin: 04/05/18 09:35 Dose: 2 mg Physical Exam - Constitutional Appears: Well, Non-toxic, No Acute Distress - Head Exam Head Exam: ATRAUMATIC, NORMAL INSPECTION, NORMOCEPHALIC - Eye Exam Eye Exam: EOMI, Normal appearance - ENT Exam ENT Exam: Mucous Membranes Moist, Normal Oropharynx Additional comments: uvula midline. No pharyngeal erythema noted - Neck Exam Additional comments: mild crepitus palpated bilateral neck. Mild tenderness to palpation above clavicle bilaterally. No bony deformities noted. - Respiratory Exam Respiratory Exam: NORMAL BREATHING PATTERN. absent: Accessory Muscle Use, Chest Wall Tenderness, Respiratory Distress - GI/Abdominal Exam GI & Abdominal Exam: Soft. absent: Distended, Firm, Guarding, Mass, Tenderness - Extremities Exam Extremities exam: Positive for: normal inspection. Negative for: calf tenderness - Back Exam Back exam: NORMAL INSPECTION - Neurological Exam Neurological exam: Alert, Oriented x3 - Skin Skin Exam: Dry, Intact, Normal Color, Warm Results - Vital Signs Recent Vital Signs: Last Vital Signs Temp 98.4 F 04/05/18 00:00 Pulse 89 04/05/18 06:00 Resp 15 04/05/18 02:50 BP 108/58 L 04/05/18 02:00 Pulse Ox 98 04/05/18 02:50 - Labs Result Diagrams: 04/05/18 05:00 04/05/18 05:00 Labs: Laboratory Results - last 24 hr 04/05/18 04/05/18 04/05/18 05:00 05:00 05:00 WBC 7.7 RBC 4.33 Hgb 13.0 Hct 38.8 MCV 89.6 MCH 30.0 MCHC 33.5 RDW 12.8 Plt Count 189 MPV 12.3 H Sodium 143 Potassium 4.1 Chloride 108 H Carbon Dioxide 19 L Anion Gap 19 BUN 13 Creatinine 0.8 Est GFR ( Amer) > 60 Est GFR (Non-Af Amer) > 60 Random Glucose 60 L Calcium 9.3 Iron 167 TIBC 401 % Saturation 42 Triglycerides 91 Cholesterol 152 LDL Cholesterol Direct 69 HDL Cholesterol 64 H Vitamin B12 299 Folate > 20.0 Assessment & Plan - Assessment and Plan (Free Text) Assessment: 27yo F with pneumomediastinum. - likely secondary to recent dental procedure - r/o esophageal disruption Plan: - Recommend Gastrograffin Esophagram to r/o esophageal disruption - Diet may be advanced pending ENT workup and/or esophagram - Continue IV Abx - f/u GI recs - f/u ENT recs - Monitor for airway compromise, low suspicion Further recs as per Dr. Felix Santizo PGY1 surgery pager: [phone]
[2018-04-05] MEDS ORDERED: Dextrose 50% SYRINGE Inj (50 ml) IVP ONE (14:34)
--- NOTE | 2018-04-05 15:25 | CARD ---
APPROVED REPORT EKG Measurement Heart [id number] CT 132P61 [id number] <Conclusion> Normal sinus rhythm Normal ECG
[2018-04-05] MEDS: Dextrose 5%/0.9% NS 1,000 ML IV SCH (17:03)
[2018-04-06] MEDS: Dextrose 5%/0.9% NS 1,000 ML IV SCH ×2 (02:12→06:29)
--- NOTE | 2018-04-06 03:13 | PN ---
DATE: 04/05/2018 SUBJECTIVE: This patient was seen and evaluated earlier today. The patient is comfortable, feels hungry, wants to eat. No complaints. Feels much better. PHYSICAL EXAMINATION: VITAL SIGNS: She is afebrile, blood pressure 116/60, pulse is 98, respirations 20, O2 saturation 98% on room air. HEENT: Atraumatic, anicteric. There was a crepitus present in the neck area. HEART: S1 and S2 heard. LUNGS: Bilateral air entry present. No vesicular breath sounds. ABDOMEN: Soft. There is no mass palpable. No tenderness. EXTREMITIES: No edema. No cyanosis. LABORATORY DATA: Hemoglobin 13, hematocrit 38.8, WBC 7.7, platelets 189. 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 The patient did have a dental procedure on Saturday. According to the patient and also boyfriend, the swelling appeared soon after the dental procedure. Probably related to the procedure, but the CT of the chest and abdomen done in the ER reported as small amount of mediastinal air surrounding the proximal esophageal area. Large amount of subcutaneous emphysema noticed. The etiology of this questionable mediastinal air is unclear. The patient was consulted by thoracic surgeon. I also discussed with residential life director. Recommended esophagogram. The patient is scheduled to have these esophagogram done on Saturday. Clinically, this is more suggestive of the dental procedure related to the subcutaneous air, which is usually self-limited. It can be managed with antibiotics and rest, but in view of this questionable mediastinal air and thoracic surgical evaluation, suggestive of possible need for the esophagogram, we will keep the patient n.p.o., await for the esophagogram on Saturday, then after reviewing the results, the patient can be started on po. Plan is to await for the esophagogram, which will be done on Saturday, then we will start the patient on feeding if it is negative. I also discussed with Dr. Mckeon and also aerial erector regarding this patient. As far as the GI perspective, less likely the etiology is acute esophageal perforation, but the questionable small amount of air what is described in the radiology report about the mediastinum is unclear. Thank you very much for allowing me to participate in the care of the patient. Kovil MD [facility] # [id number] RAMESH
--- NOTE | 2018-04-06 05:09 | CON ---
DATE: 04/05/2018 REFERRING PHYSICIAN: Dr. Mckeon. REASON FOR CONSULTATION: Pneumomediastinum. HISTORY OF PRESENT ILLNESS: This is a 27-year-old female without any significant past medical history comes into emergency room with swelling of face and neck. She had some dental work up done day before. She did have a local anesthesia use though. According to the patient, her pain started getting worse after coming home, extended down to the neck and chest. The patient became very anxious. The patient denies any nausea, no vomiting. No cough. She had x-ray done which shows pneumomediastinum and also has a subcutaneous emphysema, admitted to intensive care unit for observation, seen by ENT and entry specialists, presently lying in the bed, still have jaw swollen and some pain. No cough. No sputum production. No shortness of breath. No nausea. No dysuria. No leg pain or leg swelling. PAST MEDICAL HISTORY: No significant cardiopulmonary disease reported. ALLERGIES: NONE KNOWN. 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 No history of smoking or alcohol use. MEDICATIONS: She is on Unasyn 3 g IV every 6 hours, getting IV fluids, morphine 2 mg every 6 hours p.r.n., Pepcid 40 mg daily Toradol 30 mg every 6 hours. REVIEW OF SYSTEM: No headache, no rhinitis. Has a left lower jaw pain extended into the neck and chest. No shortness of breath or chest pain. No nausea, vomiting, no diarrhea. No leg pain or leg swelling. PHYSICAL EXAMINATION GENERAL: No acute distress. VITAL SIGNS: Temperature is 98, heart rate is 95, respiratory rate is 18, blood pressure 116/60. HEENT: Moist mucous membranes, has a left lower jaw pain and tender. NECK: Has subcutaneous crepitans started from neck down to the chest with subcutaneous emphysema. LUNGS: Has fair airflow. HEART: S1 and S2. ABDOMEN: Soft, nontender, no organomegaly. EXTREMITIES: No edema. NEUROLOGIC: Awake, alert, follows simple commands. LABORATORY DATA: Shows hemoglobin 13, hematocrit 38.8, WBC 7.7, platelet is 189. INR was 0.97. PTT 28. ABG show pH 7.35, pCO2 of 48, pO2 of 49. Sodium 143, potassium 4.1, chloride 108, bicarbonate 19, BUN 13, creatinine 0.8, glucose 60, calcium is 9.3. Iron is 167, TIBC 401. Cholesterol is 152, lipase 111. Vitamin B12 of 299. Folate greater than 20. Microbiology, blood culture has been negative. CT of the chest shows a small amount of mediastinal air sound in the proximal esophagus there is a large amount of subcutaneous emphysema in the neck and subclavicular fossa. No evidence of pneumothorax. Also, having maxillofacial CT done which shows pneumomediastinum with air descending into the side of the neck. IMPRESSION AND PLAN Subcutaneous emphysema with pneumomediastinum probably related to dental procedure. According to the patient, she did get local anesthesia with needle, probably violating the subcutaneous deeper tissue causing the tract for subcutaneous emphysema, subsequently pneumomediastinum. Clinically she is stable, may continue antibiotics, completing about 5 days of total. Continue pain management. We will continue watch for extension of subcutaneous emphysema. Thank you and we will follow with you. Eduardo Fairchild MD
--- NOTE | 2018-04-06 05:50 | PN ---
DATE: 04/06/2018 SUBJECTIVE: Patient is 27-year-old female. Patient is seen and examined at the bedside, looking comfortable. No nausea, vomiting or diarrhea. No hematuria or hematochezia. No fever. No chills. Swelling of the teeth and neck is decreased, crepitus is decreased. PHYSICAL EXAMINATION: VITAL SIGNS: Temperature 98, pulse 69, blood pressure 92/46, respiratory rate 18. HEENT: Head: Normocephalic, atraumatic. Eyes: PERRLA. Extraocular muscles intact. Conjunctivae clear. Nose: Patent. Mucous membrane moist. NECK: Supple. Still having crepitus, even it is less. CHEST: Clear to auscultation. ABDOMEN: Soft. Bowel sounds present. No organomegaly. EXTREMITIES: No edema. No cyanosis. NEUROLOGICAL: Patient is awake and alert. Moving all four extremities. No focal deficits. MEDICATIONS: Augmentin, dextrose, morphine, Pepcid, Toradol. LABORATORY DATA: White blood cell 7.7, hemoglobin 13, hematocrit 38.8, platelets 189. Sodium 143, potassium , BUN 13, creatinine 0.8, glucose 60. HDL 64. ASSESSMENT AND PLAN: Ms. Umu Washintgon is a 27-year-old lady with the hyperchloremia, low carbon dioxide, vitamin B12 deficiency, has left-sided jaw pain and swelling. Patient reports that procedure was done three days ago. She had a left lower molar cap removed and refilled. Denies any intubation or sedation. Does not report using any local anesthesia for the procedure. No coughing. No nausea, vomiting or diarrhea. States that soon after the procedure, she felt some pain at the left lower jaw and swelling, which slowly extends into her neck, looks like she has pneumomediastinum likely secondary to recent dental procedure. Rule out esophageal disruption. Recommending the Gastrografin esophagogram to rule out esophageal disruption. Diet may be advanced by pending ENT workup and/or esophagogram. Still await ENT input. Continue intravenous antibiotics. Continue intravenous fluid. compromise, low suspicion, but still we have to work on that. Length of time discussion done with Dr. Hernandez, Dr. Toledo and Cardiothoracic resident. Waiting for ENT input as well as trial of esophagogram. Meanwhile, continue present treatment. Repeat labs. We will follow up. Esther Mckeon MD
--- NOTE | 2018-04-06 10:12 | CP.PCM.PN ---
Subjective - Date & Time of Evaluation Date of Evaluation: 04/06/18 Time of Evaluation: 08:05 - Subjective Subjective: Cardiothoracic Surgery progress note. Dr. Washington Pt seen and examined at bedside. No acute events overnight. Patient report that neck pain has improved. No N/V/D. Tolerating diet. No F/C. No new complaints. Objective - Vital Signs/Intake and Output Vital Signs (last 24 hours): Temp Pulse Resp BP Pulse Ox 98.3 F 65 17 104/51 L 96 04/06/18 04:00 04/06/18 09:12 04/06/18 09:12 04/06/18 09:12 04/06/18 09:12 Intake and Output: 04/06/18 04/06/18 06:59 18:59 Intake Total 1999 Balance 1999 - Medications Medications: Current Medications Famotidine (Pepcid) 40 mg PO HS HAMZAH Last Admin: 04/05/18 21:33 Dose: 40 mg Ampicillin Sodium/Sulbactam (Sodium 3 gm/ Sodium Chloride) 100 mls @ 200 mls/ hr IVPB Q6 HAMZAH PRN Reason: Protocol Last Admin: 04/06/18 05:12 Dose: 200 mls/hr Ketorolac Tromethamine (Toradol) 30 mg IVP Q6H PRN PRN Reason: Pain, moderate (4-7) Last Admin: 04/04/18 21:32 Dose: 30 mg Morphine Sulfate (Morphine) 2 mg IVP Q6H PRN PRN Reason: Pain, severe (8-10) Last Admin: 04/05/18 17:28 Dose: 2 mg - Labs Labs: 04/05/18 05:00 04/05/18 05:00 PT 11.1 SECONDS (9.4-12.5) 04/04/18 13:30 INR 0.97 (0.93-1.08) 04/04/18 13:30 APTT 27.5 Seconds (25.1-36.5) 04/04/18 13:30 - Constitutional Appears: Well, Non-toxic, No Acute Distress - Head Exam Head Exam: ATRAUMATIC, NORMAL INSPECTION, NORMOCEPHALIC - Eye Exam Eye Exam: EOMI, Normal appearance - ENT Exam ENT Exam: Mucous Membranes Moist - Neck Exam Additional comments: mild tenderness to palpation. minimal crepitus felt supraclavicularly on right, improved since yesterday. No erythema, no induration. - Respiratory Exam Respiratory Exam: NORMAL BREATHING PATTERN. absent: Accessory Muscle Use, Respiratory Distress - Cardiovascular Exam Cardiovascular Exam: RRR. absent: JVD - GI/Abdominal Exam GI & Abdominal Exam: Soft. absent: Distended, Guarding, Rigid, Tenderness, Rebound - Extremities Exam Extremities Exam: Normal Inspection. absent: Calf Tenderness - Neurological Exam Neurological Exam: Alert, Awake, Oriented x3 - Skin Skin Exam: Dry, Intact, Normal Color, Warm Assessment and Plan - Assessment and Plan (Free Text) Assessment: 27yo F with pneumomediastinum post dental procedure Plan: - No indications for cardiothoracic surgery intervention at this time - Tolerating diet. May advance as tolerated - f/u Esophagogram with gastrograffin to r/o esophageal disruption. Low suspicion - Please re-consult as necessary Further recs as per Dr. Felix Santizo PGY1 surgery pager: [phone]
--- NOTE | 2018-04-06 11:30 | CP.CCUPN ---
<Mulugeta Drew - Last Filed: 04/06/18 11:31> CCU Subjective - Physician Review Subjective (Free Text): 04/06/18 11:31 Mulugeta Drew D.O. PGY-2, Internal Medicine Resident, Critical Care Progress Note 27 year old female with no significant PMH who was admitted to the ICU for airway monitoring 2/2 spontaneous pneumomediastinum. Patient was seen and examined this morning. Having a headache at this time but no other complaints. No SOB, CP, or N/V. No overnight events. CCU Objective - Vital Signs / Intake & Output Vital Signs (Last 4 hours): Vital Signs Pulse Resp BP Pulse Ox 04/06/18 10:20 77 18 100 04/06/18 10:10 99 H 23 100 04/06/18 10:00 77 110/37 L 100 04/06/18 09:50 76 26 H 100 04/06/18 09:40 80 17 100 04/06/18 09:30 72 18 100 04/06/18 09:20 71 19 100 04/06/18 09:12 65 17 104/51 L 96 04/06/18 09:10 72 16 100 04/06/18 09:00 60 16 100 04/06/18 08:50 63 18 100 04/06/18 08:40 62 19 100 04/06/18 08:30 77 100 04/06/18 08:20 63 13 100 04/06/18 08:11 74 13 04/06/18 08:10 79 25 H 04/06/18 08:00 80 9 L 04/06/18 07:50 65 28 H 100 04/06/18 07:40 67 43 H 99 Intake and Output (Last 8hrs): Intake & Output 04/05/18 04/06/18 04/06/18 22:59 06:59 14:59 Intake Total 1400 2000 Balance 1400 2000 Weight 50.802 kg Intake: IV 1400 1800 Left Antecubital 1400 1800 Oral 200 Other: # Voids Urine, Voided 1 1 # Bowel Movements 1 - Physical Exam Head: Positive for: Atraumatic, Normocephalic, Other (+lt. lower jaw swelling and lt. anterior cervical lymphenapathy) Pupils: Positive for: PERRL Extroacular Muscles: Positive for: EOMI Conjunctiva: Positive for: Normal Mouth: Positive for: Moist Mucous Membranes Pharnyx: Negative for: ERYTHEMA, EXUDATE, TONSILS ENLARGED, Uvular Deviation, Muffled/Hoarse Voice, Strider Nose (External): Positive for: Atraumatic. Negative for: Abrasion, Contusion, Laceration Nose (Internal): Positive for: Normal Inspection, No Active Bleeding. Negative for: Rhinorrhea, Septal Hematoma, Epistaxis Neck: Positive for: Normal Range of Motion, Lymphadenopathy (lt. anterior cervical with crepitus sound noted on the left side of the facial/neck regions) , Trachea Midline. Negative for: Meningeal Signs, MIDLINE TENDERNESS, Paraspinal Tenderness Respiratory/Chest: Positive for: Clear to Auscultation, Good Air Exchange. Negative for: Respiratory Distress, Accessory Muscle Use, Wheezes, Decreased Breath Sounds, Rales, Retracting, Rhonchi Cardiovascular: Positive for: Regular Rate and Rhythm, Normal S1, S2. Negative for: Murmurs Abdomen: Positive for: Normal Bowel Sounds. Negative for: Tenderness, Distention, Peritoneal Signs Back: Positive for: Normal Inspection Upper Extremity: Positive for: Normal Inspection. Negative for: Cyanosis, Edema Lower Extremity: Positive for: Normal Inspection. Negative for: Edema Neurological: Positive for: GCS=15, CN II-XII Intact, Speech Normal, Motor Func Grossly Intact Skin: Positive for: Warm, Dry, Normal Color. Negative for: Rashes, Diaphoretic Psychiatric: Positive for: Alert, Oriented x 3, Normal Insight, Normal Concentration - Medications Active Medications: Active Medications Generic Name Dose Route Start Last Admin Trade Name Freq PRN Reason Stop Dose Admin Famotidine 40 mg 04/05/18 22:00 04/05/18 21:33 Pepcid PO 40 mg HS HAMZAH Administration Ampicillin Sodium/Sulbactam 100 mls @ 200 mls/hr 04/05/18 12:00 04/06/18 05: 12 Sodium 3 gm/ Sodium Chloride IVPB 200 mls/hr Q6 HAMZAH Administration Protocol Ketorolac Tromethamine 30 mg 04/04/18 18:37 04/06/18 10:23 Toradol IVP 30 mg Q6H PRN Administration Pain, moderate (4-7) Morphine Sulfate 2 mg 04/05/18 09:16 04/05/18 17:28 Morphine IVP 2 mg Q6H PRN Administration Pain, severe (8-10) - Patient Studies Lab Studies: Lab Studies 04/05/18 04/05/18 Range/Units 05:00 05:00 Hemoglobin A1c 5.2 (4.2-6.5) % Vitamin B12 299 (239-931) pg/mL Folate > 20.0 ng/mL Laboratory Results - last 24 hr 04/05/18 04/05/18 05:00 05:00 Hemoglobin A1c 5.2 Vitamin B12 299 Folate > 20.0 Fingerstick Blood Sugar Results: 124 Critical Care Progress Note - Nutrition Nutrition: Nutrition Category Date Time Status Liquid Diet [DIET] Diets 04/05/18 Dinner Ordered Assessment/Plan - Assessment and Plan (Free Text) Assessment: 27 year old female with no significant PMH who was admitted to the ICU for airway monitoring 2/2 spontaneous pneumomediastinum. Plan: Neurologic AAOx4, nonfocal Cardiovascular HD stable CT Surgery and ENT consulted for pneumomediastinum, pending esophagram with gastrograffin, otherwise no issues No acute issues Pulmonary Satting well on room air No respiratory compromise after pneumomediastinum ENT Maintain O2 sat > 92% Gastrointestinal NPO GI consulted - recommends esophogram with gastrograffin Renal/Electrolytes Monitor electrolytes, replete as needed Monitor I's and O's Maintain euvolemia Hematologic HD stable No active bleeding Cont to monitor Endocrine No active issues Infectious Disease Cont Unasyn now day 2 DVT ppx: ambulatory Dispo: patient is improved, no respiratory issues with pneumomediastinum, etiology likely 2/2 dental procedure, at this time patient is improved and can be transferred to telemetry. Continued care per primary. Patient was seen and examined and case was discussed at length with attending physician. - Date & Time Date: 04/06/18 Time: 09:30 <Nicolas Hernandez - Last Filed: 04/06/18 14:04> CCU Objective - Vital Signs / Intake & Output Vital Signs (Last 4 hours): Vital Signs Pulse Resp BP Pulse Ox 04/06/18 10:20 77 18 100 04/06/18 10:10 99 H 23 100 04/06/18 10:00 77 110/37 L 100 Intake and Output (Last 8hrs): Intake & Output 04/05/18 04/06/18 04/06/18 22:59 06:59 14:59 Intake Total 1400 2000 Balance 1400 2000 Weight 112 lb Intake: IV 1400 1800 Left Antecubital 1400 1800 Oral 200 Other: # Voids Urine, Voided 1 1 # Bowel Movements 1 - Medications Active Medications: Active Medications Generic Name Dose Route Start Last Admin Trade Name Freq PRN Reason Stop Dose Admin Famotidine 40 mg 04/05/18 22:00 04/05/18 21:33 Pepcid PO 40 mg HS HAMZAH Administration Ampicillin Sodium/Sulbactam 100 mls @ 200 mls/hr 04/05/18 12:00 04/06/18 12: 15 Sodium 3 gm/ Sodium Chloride IVPB 200 mls/hr Q6 HAMZAH Administration Protocol Ketorolac Tromethamine 30 mg 04/04/18 18:37 04/06/18 10:23 Toradol IVP 30 mg Q6H PRN Administration Pain, moderate (4-7) Morphine Sulfate 2 mg 04/05/18 09:16 04/05/18 17:28 Morphine IVP 2 mg Q6H PRN Administration Pain, severe (8-10) Mupirocin 1 gm 04/06/18 13:32 Bactroban Ointment NS 04/10/18 18:01 BID AHMZAH - Patient Studies Lab Studies: Microbiology Studies 04/04/18 20:25 MRSA Culture (Admit) - Final Nose Lab Studies 04/05/18 Range/Units 05:00 Hemoglobin A1c 5.2 (4.2-6.5) % Laboratory Results - last 24 hr 04/05/18 05:00 Hemoglobin A1c 5.2 Critical Care Progress Note - Nutrition Nutrition: Nutrition Category Date Time Status Liquid Diet [DIET] Diets 04/05/18 Dinner Ordered Attending/Attestation - Attestation I have personally seen and examined this patient.: Yes I have fully participated in the care of the patient.: Yes I have reviewed all pertinent clinical information: Yes Notes (Text): 04/06/18 13:57 27 yo female with pneumomediastinum after dental procedure, was cleared for full liquids by ENT after endoscopy. Hemodynamically and respiratory duque stable , protecting airways, tolerated full liquids well--night was uneventful, day "3 abx, no fever and no leukocytosis ccm time 40 min
[2018-04-06] MEDS: Mupirocin 2% Ointment 15 GM TUBE NS SCH ×2 (14:00→17:34)
[2018-04-06] MEDS ORDERED: Apap-Butalbital-Caffeine 325-50-40mg Tab PO PRN (17:05)
--- NOTE | 2018-04-06 19:02 | PN ---
DATE: 04/06/2018 PULMONARY PROGRESS NOTE REFERRING PHYSICIAN: Esther Mckeon MD SUBJECTIVE: She is lying in the bed. Head at 45 degrees. Still has some pain in the left side of the jaw. Still has a percutaneous crepitance. No nausea. No vomiting. No diarrhea. No leg pain or leg swelling. OBJECTIVE: GENERAL: In no acute distress. VITAL SIGNS: Temperature is 98, heart rate 77, respiratory rate is 20, blood pressure is 110/37, pulse ox is 100% on room air. HEENT: Moist mucous membranes. Some swelling of the left jaw. LUNGS: Has a fair airflow. HEART: S1 and S2. ABDOMEN: Soft, nontender. No organomegaly. EXTREMITIES: No edema. NEUROLOGIC: Awake and alert. Follows simple command. MEDICATIONS: She is on Unasyn 3 g IV every 6 hours, Bactroban ointment to affected area twice a day, morphine 2 mg every 6 hours p.r.n., Pepcid 40 mg daily, Toradol 30 mg every 6 hour p.r.n. LABORATORY DATA: Reviewed and noted. No new lab is available since yesterday. Microbiology: Blood culture, no growth. IMPRESSION AND PLAN: Status post dental procedure. After that ended up with subcutaneous emphysema, pneumomediastinum. Pulmonary-duque, stable, doing pretty good, still has crepitance in the neck and chest area. Medically stable. If discharged, could be discharged home on Augmentin 875 twice a day, another 3 days or so. Thank you and we will follow with you. Eduardo Fairchild MD
[2018-04-07 07:55] VITALS: BP 102/61; RESP 19; TEMP 98; O2SAT 99
--- NOTE | 2018-04-07 08:05 | CON ---
DATE: 04/05/2018 LOCATION: She is seen in ICU bed 129-04. CHIEF COMPLAINT: Left-sided jaw pain. HISTORY OF PRESENT ILLNESS: This 27-year-old female with no past medical history, with NO KNOWN DRUG ALLERGY recently had, the prior to admission, a dental procedure with temporary cap placed performed by her dentist without conscious sedation. The left side of her face was swollen on admission per ER physician with severe pain and swelling of the throat, which onset 24-48 hours after surgical manipulation. Severe pain, which is now seen at this time to have been subsiding, with noted pain on swallowing. No fever. No white count. No chills. No sweats. No tingling and/or palpitation. PAST MEDICAL HISTORY: As stated is negative. No infectious history disease. No psychiatric illnesses. No previous anesthesia. No surgical history. SOCIAL HISTORY: Patient is a nonsmoker and no alcohol use. ALLERGIES: NO KNOWN DRUG ALLERGIES NOTED. MEDICATIONS: No medications on a regular basis. REVIEW OF EXAM: On 04/04 at 0619; CONSTITUTIONAL: Pleasant, interactive 27-year-old female. HEENT: Eyes noted to be within norm with no visible changes. Throat, left lower pain and tenderness, third molar on the left posterior aspect and the inferior gingiva with minimal swelling and no adenopathy noted. No change in her hearing. RESPIRATORY: No shortness of breath or cough. CARDIOVASCULAR: No chest pain. GASTROINTESTINAL: No abdominal pain, nausea, or vomiting. No rashes noted. No headaches. VITAL SIGNS: Noted to be normal on 04/04; 98, 86, 18, 138/76, and pulse ox of 100. Patient is afebrile. Blood pressure was noted to be within the norm, and pulse rate was norm. PHYSICAL EXAM: As stated, left-sided facial swelling, which has since resolved. Complete range of motion. No swelling over chest, full range of motion, and patient is cognitive with good verbal responses. Patient states she is hungry and would like to eat. Patient is on IV therapy as noted. CAT scan was reviewed and discussed with the patient. There was noted to be free gas on the CT of chest sources. There is a pending swallow ordered by Otolaryngology. Facial showed pneumomediastinum on CAT scan, rule out air dissection into both sides of the neck which since has resolved. There is a small amount of mediastinal air surrounding esophagus. There is noted subcutaneous emphysema on the neck, which is now on clinical exam resolved. LABORATORY DATA: 8.2/12.9/38.4, 191, 144, 4.2, 106, 24, 11, 0.8 and 90 as noted on lab results. Blood type was noted to be positive 0. No white count noted at this time. As stated, a order for a Gastrografin esophagram is pending and unable to be performed over weekend. RECOMMENDATIONS: As stated, patient is on IV therapy and will continue to be on IV therapy over the next 24-48 hours. Diagnoses of subcu emphysema and pneumomediastinum secondary to dental manipulation. Discussion with patient to notify dentist of followup work and what has happened. Patient will be continued after 48-72 hours with oral antibiotics and will be discharged to home post results of a barium swallow. Laryngoscopy was done at bedside with a non-complicated, patent oral airway with no obstruction, good vocal cord mobility and a normal moving epiglottis without clots and/or aspiration. As stated with patient, we will advance her diet and now that she is resolving, to a full liquid diet and she has tolerated. Recommendation for swallow therapy pending esophagram. Patient may be discharged in 48-72 hours if continuing to progress with maintained antibiotic protocol and as discussed with the patient to follow up in the office. Shahram Orozco DO
--- NOTE | 2018-04-07 08:17 | HP ---
DATE OF EXAM: 04/04/2018 The patient is a 27-year-old female. The patient was seen and examined at the bedside on 04/04/2018. CHIEF COMPLAINT: Swelling of the neck and upper chest. HISTORY OF PRESENT ILLNESS: Ms. Umu Washington is a 27-year-old female with no significant past medical history, no allergies, s/p lower molar removal procedure performed by her dentist yesterday without conscious sedation, complaining of left-sided facial swelling and the pain on the throat that started yesterday and today with aching pain on and off associated with painful swelling. No fever or chills. No night sweats. No numbness or tingling sensation or palpitation. No other medical complaints. No hematuria or hematochezia. PAST MEDICAL HISTORY: Denied. FAMILY HISTORY: Father and mother, noncontributory. HABITS: Never smoked. No drugs. No ethanol. ALLERGIES: PATIENT IS NOT ALLERGIC WITH ANY MEDICATIONS. HOME MEDICATIONS: Patient denied. REVIEW OF SYSTEMS: Patient was seen and examined at the bedside in the emergency room on 04/04/2018. Boyfriend was sitting at the bedside also. No fatigue or fever. No vision changes. Feeling sore throat, left lower dental pain and jaw pain. Absent hearing changes. No shortness of breath or cough. No abdominal pain. No nausea or vomiting. No rash or pruritus. No headache. No anxiety, depression or suicidal ideation. PHYSICAL EXAMINATION: VITAL SIGNS: Temperature 98.0, pulse 86, respiratory rate 18, blood pressure 138/76, pulse oximetry 100%. HEENT: Head was normocephalic and atraumatic. Eyes, PERRLA. Extraocular muscles intact. Conjunctivae clear. Nose patent. Mucous membranes moist. NECK: Supple, but there is crepitus. Neck has normal range of motion. No lymphadenopathy. Trachea is midline. No meningeal signs. Midline tenderness and paraspinal tenderness. LUNGS: Clear to auscultation. Good air exchange. No respiratory distress. HEART: S1 and S2 positive. No murmur. ABDOMEN: Soft, nontender, no organomegaly. EXTREMITIES: No edema. No cyanosis. NEUROLOGIC: Patient is awake, alert. Moving all four extremities. No focal deficits. LABORATORY DATA: White blood cells 8.3, hemoglobin 12.9, hematocrit 38.4, and platelets 191. Sodium 144, potassium 4.1, BUN 11, creatinine 0.8, and glucose 90. 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 The patient was seen and examined at the bedside in the emergency room. Boyfriend was sitting at the bedside also. It looks like she has spontaneous pneumomediastinum. No cough or vomiting on bearing down maneuvers. Patient had a recent dental procedure done. ENT and Gastroenterology are on the case. Discussion done with Dr. Toledo. We will continue hemodynamic and airway breathing in Intensive Care Unit, waiting for the input of them. CAT scan of the chest was done, showed there is a small amount of mediastinal air with a large amount of subcutaneous emphysema in the neck and supraclavicular fossa. No evidence of pneumothorax. Maxillofacial CT, pneumomediastinum with air descending to both sides of the neck. Soft tissue of the neck CT reviewed by me again shows pneumomediastinum with a large amount descending to both sides of the neck. Waiting for Dr. Toledo's input because he saw the patient in the emergency room with me. Patient is admitted in the unit morphine and Toradol. Got a dose of the Unasyn. Gastrointestinal and deep venous thrombosis prophylaxes provided. Repeat labs. We will give some Pepcid and we will follow up. Esther Mckeon MD
--- NOTE | 2018-04-07 08:36 | PN ---
DATE: 04/06/2018 SUBJECTIVE: Patient was seen and examined at the bedside on 04/06/2018. Boyfriend was sitting at the bedside also. Still having left-sided jaw pain, but getting better. Still has percutaneous crepitance, but still getting better. ENT saw the patient and started the patient on clear liquid diet. Patient tolerated the clear liquid very well. Advanced to full liquid and will advance to soft regular diet. No swelling of the leg. Having intractable headache, only Tylenol is not working. 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 PHYSICAL EXAMINATION: VITAL SIGNS: Temperature 98, heart rate 77, respiratory rate 20, blood pressure 110/37, pulse oximetry 100% on room air. HEENT: Head: Normocephalic and atraumatic. Eyes: PERRLA. Extraocular muscles are intact. Conjunctivae are clear. Nose: Patent. Mucous membranes are moist. Some swelling of the left jaw. NECK: Has crepitus. LUNGS: Fair airflow. HEART: S1 and S2 positive. ABDOMEN: Soft and nontender. No organomegaly. EXTREMITIES: No edema. No cyanosis. NEUROLOGICAL: Patient is awake and alert. Follows simple commands. MEDICATIONS: Unasyn, Bactroban, morphine, Pepcid, and Toradol. LABORATORY DATA: No new labs are available since yesterday. Microbiology: Blood cultures, no growth. ASSESSMENT AND PLAN: Ms. Umu Washington is a 27-year-old lady, status post dental procedure, after that ended up in subcutaneous emphysema, pneumomediastinum. Pulmonary duque, stable, doing pretty good. Still has crepitus in the neck and chest area and the jaw. Patient is getting antibiotics and according to Dr. Fairchild, if patient will go home, she will go home with Augmentin, p.o. antibiotics. Gastrointestinal and deep venous thrombosis prophylaxis given. Seen by cardiothoracic team. No new complaints. No indication for cardiothoracic surgery intervention at this time. Follow up esophagogram and Gastrografin to rule out esophageal dyspepsia, low suspicion, but the suspicion is not zero yet, to the procedure. Seen by Dr. Hernandez. Seen by ENT and Dr. Toledo. According to the patient and the boyfriend himself, swelling appeared soon after the dental procedure, probably related to the procedure, but CT of the chest and abdomen done in the ER reported a small amount of mediastinal air surrounding the proximal esophageal area; large amount of subcutaneous emphysema is noticed. Etiology of this questionable mediastinal air is unclear. Cardiothoracic saw the patient. Discussion done with cardiothoracic surgeon by me and by Dr. Toledo. Is going to have esophagogram. So, the patient is scheduled for tolerated the food, advance that, continue advancing and watch patient for wait for the esophagogram on Saturday and after then patient can be started on discharge planning. Repeat labs. We will follow up. Esther Mckeon MD
[2018-04-07] MEDS: Mupirocin 2% Ointment 15 GM TUBE NS SCH (10:26)
[2018-04-07 10:52] VITALS: PULSE 86
[2018-04-07] MEDS ORDERED: Barium Sulfate for Susp 98% w/w 340g Bottle ONE (11:06)
[2018-04-07] MEDS ORDERED: Iohexol 240 (50 ml) ONE (11:13)
--- NOTE | 2018-04-07 12:11 | RAD ---
HISTORY: Dysphagia. COMPARISON: None. TECHNIQUE: Single contrast water soluble esophagram was performed. FINDINGS: Patient tolerated procedure well. ESOPHAGUS: Esophageal mucosa appeared preserved. No evidence of stricture or mass lesion. HIATAL HERNIA: None demonstrated. GASTROESOPHAGEAL REFLUX: Not demonstrated. OTHER FINDINGS: None. IMPRESSION: No evidence of esophageal leak
--- NOTE | 2018-04-07 21:26 | PN ---
DATE: 04/07/2018 PULMONARY PROGRESS NOTE REFERRING PHYSICIAN: Esther Mckeon MD. SUBJECTIVE: She is lying in the bed, head at 45 degrees. Night was unremarkable. Jaw and chest pain are much better. No nausea. No vomiting. No diarrhea. No leg pain or leg swelling. PHYSICAL EXAMINATION: GENERAL: In no acute distress. VITAL SIGNS: Temperature is 98, heart rate is 86, respiratory rate is 18, blood pressure 102/61, pulse ox 99% on room air. HEENT: Moist mucous membrane. No ulcer or thrush noted. NECK: Left lower jaw swelling has improved, percutaneous emphysema. Crepitance is better. LUNGS: Have a fair airflow. HEART: S1 and S2. ABDOMEN: Soft, nontender. No organomegaly. EXTREMITIES: There is no edema. NEUROLOGIC: Awake, alert, follows simple commands. MEDICATIONS: Reviewed and noted. No new changes in medication reported since yesterday. LABORATORY DATA: Reviewed and no new lab is available since yesterday. Has esophagogram done today, which shows no evidence of esophageal leak. IMPRESSION AND PLAN: Status post dental procedure, ended up with subcutaneous emphysema with pneumomediastinum. The patient was seen by accountant supervisor, GI being stable, slowly resolving subcutaneous emphysema. Today's esophagogram is normal. This is probably happening with deeper injection with dental workup. Discharge planning, PMD follow up as an outpatient. Thank you and we will follow with you. Eduardo Fairchild MD
[2018-04-07] MEDS ORDERED: Amoxicillin-Clav 875-125 mg Tab PO SCH (22:00)
== END 2018-04-07 13:52 | disposition home or self-care (01) | DRG 921 ==
LOC: ED 12:52 → ERH 18:12 → CCU 20:10 → 3RNO 04-06 10:51
PROVIDERS: ADMIT Internal Medicine; ATTEND Internal Medicine
DX: T81.82XA Emphysema (subcutaneous) resulting from a procedure, initial encounter (principal); E53.8 Deficiency of other specified B group vitamins; Y83.8 Other surgical procedures as the cause of abnormal reaction of the patient, or of later complication, without mention of misadventure at the time of the procedure; Y92.009 Unspecified place in unspecified non-institutional (private) residence as the place of occurrence of the external cause